=== PATIENT | male | born 1990 | race Caucasian/White ===

== ENCOUNTER 2023-07-07 11:17 | Outpatient (REF) | payer MEDICAID, OTHER, SELFPAY ==
[2023-07-07 13:39] LABS: MANUAL DIFF FLAG NO
[2023-07-07 13:53] LABS: Basophils Absolute Auto 0.1 X10*3/uL (0.0-0.2); Basophils Percent Auto 0.9 % (0-2); Eosinophils Absolute Auto 0.1 X10*3/uL (0.0-0.4); Eosinophils Percent Auto 2.1 % (0-4); Hematocrit 49.4 % (42.0-52.0); Hemoglobin 16.7 g/dl (14.0-18.0); Imm Gran Abs Auto 0.04 X10*3/uL (0.00-0.03); Imm Gran Pct Auto 0.7 % (0.0-0.4); Lymphocytes Absolute Auto 1.7 X10*3/uL (1.2-4.9); Lymphocytes Percent Auto 30.5 % (20-40); Mean Corpuscular HGB Conc 33.8 g/dl (31.0-36.0); Mean Corpuscular Hemoglobin 30.3 pg (27.0-33.0); Mean Corpuscular Volume 89.7 fL (80.0-98.0); Mean Platelet Volume 10.1 fL (9.4-12.4); Monocytes Absolute Auto 0.4 X10*3/uL (0.1-1.2); Neutrophils Absolute Auto 3.3 x10*3/uL (2.0-8.3); Neutrophils Percent Auto 58.8 % (45-73); Platelet Count 231 X10*3/uL (160-400); Red Blood Count 5.51 X10*6/uL (4.60-5.80); Red Cell Distribution Width 13.6 % (11.0-16.0); White Blood Count 5.7 X10*3/uL (4.8-10.8)
[2023-07-07 14:01] LABS: Estimated Average Glucose 100 mg/dL; Hemoglobin A1c % 5.1 % (<6.0)
[2023-07-07 14:10] LABS: Cholesterol 222 mg/dL (<200); HDL Cholesterol 47 mg/dL (>40); LDL Cholesterol Calculated 152 mg/dL (<100); Triglycerides 119 mg/dL (<150)
[2023-07-07 14:26] LABS: Reflex LDLD? No
[2023-07-07 14:32] LABS: Alanine Aminotransferase 21 U/L (0-40); Albumin Level 4.5 g/dL (3.5-5.0); Alkaline Phosphatase 77 U/L (39-117); Anion Gap 10 (12-20); Aspartate Amino Transferase 18 U/L (5-37); Bilirubin Total 0.5 mg/dL (0.0-1.0); Blood Urea Nitrogen 10 mg/dL (9-16); Calcium 9.8 mg/dL (8.4-10.2); Carbon Dioxide 25 mmol/L (22-29); Chloride 108 mmol/L (96-108); Estimated Glomerular Filt Rate > 60; Glucose Random 100 mg/dL (60-115); Lipase 26 U/L (8-78); Potassium 4.2 mmol/L (3.3-5.1); Sodium 139 mmol/L (135-145); Total Protein 7.6 g/dL (6.5-8.0)
== END 2023-07-07 11:18 | disposition home or self-care (01) ==
LOC: HO.HHCL 11:17
PROVIDERS: Visit Provider Family Medicine
DX: Z13.89 Encounter for screening for other disorder (principal)
CPT/HCPCS: 36415; 80053; 80061; 83036; 83690; 85025

== ENCOUNTER 2023-10-11 09:35 | Outpatient (REF) | payer MEDICAID, OTHER, SELFPAY ==
[2023-10-11 11:46] LABS: Hematocrit 46.8 % (42.0-52.0); Hemoglobin 15.6 g/dl (14.0-18.0); Mean Corpuscular HGB Conc 33.3 g/dl (31.0-36.0); Mean Corpuscular Hemoglobin 30.4 pg (27.0-33.0); Mean Corpuscular Volume 91.2 fL (80.0-98.0); Mean Platelet Volume 9.8 fL (9.4-12.4); Platelet Count 229 X10*3/uL (160-400); Red Blood Count 5.13 X10*6/uL (4.60-5.80); Red Cell Distribution Width 13.2 % (11.0-16.0); White Blood Count 4.9 X10*3/uL (4.8-10.8)
[2023-10-11 12:07] LABS: Estimated Average Glucose 105 mg/dL; Hemoglobin A1c % 5.3 % (<6.0); Syphilis Screen Nonreactive (Nonreactive)
[2023-10-11 12:16] LABS: Alanine Aminotransferase 18 U/L (0-40); Albumin Level 4.2 g/dL (3.5-5.0); Alkaline Phosphatase 73 U/L (39-117); Anion Gap 10 (12-20); Aspartate Amino Transferase 17 U/L (5-37); Bilirubin Total 0.5 mg/dL (0.0-1.0); Blood Urea Nitrogen 14 mg/dL (9-16); Calcium 9.3 mg/dL (8.4-10.2); Carbon Dioxide 26 mmol/L (22-29); Chloride 109 mmol/L (96-108); Cholesterol 202 mg/dL (<200); Estimated Glomerular Filt Rate > 60; Glucose Random 105 mg/dL (60-115); HDL Cholesterol 43 mg/dL (>40); LDL Cholesterol Calculated 136 mg/dL (<100); Potassium 4.2 mmol/L (3.3-5.1); Sodium 141 mmol/L (135-145); Total Protein 7.3 g/dL (6.5-8.0); Triglycerides 116 mg/dL (<150)
[2023-10-11 12:18] LABS: HBS Num1 0.74 mIU/mL (0-7.99); HIV AB/AG Nonreactive (Nonreactive); HIV Num 1 0.04 S/CO (0.00-0.99); Hepatitis B Core Antibody Nonreactive (Nonreactive); ~Hepatitis B Surface Antibody NONREACTIVE (Nonreactive); ~Hepatitis C Antibody Nonreactive (Nonreactive)
[2023-10-11 12:22] LABS: TSH reflex Free T4 0.64 uIU/mL (0.32-4.0)
[2023-10-11 12:38] LABS: HBsAGNum1 0.22 S/CO (0.00-0.99); Hepatitis B Surface Antigen Negative (Negative)
[2023-10-13 16:13] LABS: TS Negative Control Passed; TS Panel A 3; TS Panel B 39; TS Positive Control Passed; TSpotTB Positive (Negative)
== END 2023-10-11 09:36 | disposition home or self-care (01) ==
LOC: HO.HHCL 09:35
PROVIDERS: Visit Provider Student in an Organized Health Care Education/Training Program
DX: Z00.00 Encounter for general adult medical examination without abnormal findings (principal); Z11.4 Encounter for screening for human immunodeficiency virus [HIV]
CPT/HCPCS: 36415; 80053; 80061; 83036; 84443; 85027; 86481; 86704; 86706; 86780; 86803; 87340; 87389

== ENCOUNTER 2023-10-15 15:48 | Outpatient (REF) | payer MEDICAID, OTHER, SELFPAY ==
--- NOTE | ~2023-10-15 | XR_ITS ---
EXAMINATION: XR CHEST CLINICAL INFORMATION: Positive T-spine COMPARISON: None available. TECHNIQUE: 2 views of the chest were obtained. FINDINGS: No significant abnormality is noted involving the heart, lungs, mediastinum, bony thorax or soft tissues. XR/XR chest 2V IMPRESSION: Unremarkable examination.
== END 2023-10-15 15:49 | disposition home or self-care (01) ==
LOC: HO.HHCX 15:48
PROVIDERS: Visit Provider Family Medicine
DX: R76.11 Nonspecific reaction to tuberculin skin test without active tuberculosis (principal)
CPT/HCPCS: 71046

== ENCOUNTER 2023-11-16 13:58 | Outpatient (REF) | payer MEDICAID, OTHER, SELFPAY ==
[2023-11-19 14:08] LABS: TS Negative Control Passed; TS Panel A 10; TS Panel B 42; TS Positive Control Passed; TSpotTB Positive (Negative)
== END 2023-11-16 13:59 | disposition home or self-care (01) ==
LOC: HO.HHCL 13:58
PROVIDERS: Visit Provider Student in an Organized Health Care Education/Training Program
DX: Z11.1 Encounter for screening for respiratory tuberculosis (principal)
CPT/HCPCS: 36415; 86481

== ENCOUNTER 2024-09-22 14:31 | Outpatient (REF) | payer MEDICAID, OTHER, SELFPAY ==
[2024-09-22 16:05] LABS: Hematocrit 46.3 % (42.0-52.0); Hemoglobin 15.9 g/dl (14.0-18.0); Mean Corpuscular HGB Conc 34.3 g/dl (31.0-36.0); Mean Corpuscular Hemoglobin 30.3 pg (27.0-33.0); Mean Corpuscular Volume 88.4 fL (80.0-98.0); Platelet Count 237 X10*3/uL (160-400); Red Blood Count 5.24 X10*6/uL (4.60-5.80); Red Cell Distribution Width 13.2 % (11.0-16.0); White Blood Count 5.3 X10*3/uL (4.8-10.8)
[2024-09-22 16:14] LABS: Estimated Average Glucose 108 mg/dL; Hemoglobin A1C 144.8142 umol/L; Hemoglobin A1c % 5.4 % (<6.0); Total Hemoglobin (HGBA1C) 4124.5706 umol/L
[2024-09-22 16:24] LABS: Creatinine Urine 180.76 mg/dL; Microalbum/Creatinine Ratio Ur 4.4 ug/mg cr (<30)
[2024-09-22 17:47] LABS: Alanine Aminotransferase 28 U/L (0-40); Albumin Level 4.5 g/dL (3.5-5.0); Alkaline Phosphatase 82 U/L (39-117); Anion Gap 9 (12-20); Aspartate Amino Transferase 26 U/L (5-37); Bilirubin Total 0.8 mg/dL (0.0-1.0); Blood Urea Nitrogen 11 mg/dL (9-16); Calcium 9.6 mg/dL (8.4-10.2); Carbon Dioxide 29 mmol/L (22-29); Chloride 103 mmol/L (96-108); Cholesterol 206 mg/dL (<200); Estimated Glomerular Filt Rate > 60; Glucose Random 86 mg/dL (60-115); HDL Cholesterol 36 mg/dL (>40); LDL Cholesterol Calculated 132 mg/dL (<100); Potassium 4.1 mmol/L (3.3-5.1); Sodium 137 mmol/L (135-145); Total Protein 7.4 g/dL (6.5-8.0); Triglycerides 194 mg/dL (<150)
[2024-09-22 17:55] LABS: TSH reflex Free T4 0.67 uIU/mL (0.32-4.0); Vitamin D 25-OH Total 18.1 ng/mL (>30)
[2024-09-23 13:43] LABS: CT PCR NOT DETECTED (Not Detect.); NG PCR NOT DETECTED (Not Detect.)
[2024-09-24 08:54] LABS: Syphilis Screen Nonreactive (Nonreactive)
[2024-09-24 08:59] LABS: HBS Num1 > 1000.00 mIU/mL (0-7.99); HBc Num1 0.14 S/CO (0.00-0.79); HIV AB/AG Nonreactive (Nonreactive); HIV Num 1 0.05 S/CO (0.00-0.99); Hepatitis B Core Antibody Nonreactive (Nonreactive); Hepatitis B Surface Antigen Negative (Negative); ~Hepatitis B Surface Antibody REACTIVE (Nonreactive); ~Hepatitis C Antibody Nonreactive (Nonreactive)
== END 2024-09-22 14:32 | disposition home or self-care (01) ==
LOC: HO.HHCL 14:31
PROVIDERS: Visit Provider Student in an Organized Health Care Education/Training Program
DX: Z00.00 Encounter for general adult medical examination without abnormal findings (principal)
CPT/HCPCS: 36415; 80053; 80061; 82043; 82306; 82570; 83036; 84443; 85027; 86704; 86706; 86780; 86803; 87340; 87389; 87491; 87591

== ENCOUNTER 2025-10-02 10:14 | Outpatient (REF) | payer MEDICAID, OTHER, SELFPAY ==
[2025-10-02 12:20] LABS: Alanine Aminotransferase 19 U/L (0-40); Albumin Level 4.4 g/dL (3.5-5.0); Alkaline Phosphatase 71 U/L (39-117); Anion Gap 9 (12-20); Aspartate Amino Transferase 24 U/L (5-37); Blood Urea Nitrogen 15 mg/dL (9-16); Calcium 8.9 mg/dL (8.4-10.2); Carbon Dioxide 29 mmol/L (22-29); Chloride 106 mmol/L (96-108); Cholesterol 138 mg/dL (<200); Estimated Glomerular Filt Rate > 60; HDL Cholesterol 43 mg/dL (>40); Potassium 4.1 mmol/L (3.3-5.1); Sodium 140 mmol/L (135-145); Total Protein 6.7 g/dL (6.5-8.0); Triglycerides 34 mg/dL (<150)
--- OUTSIDE RECORDS SUMMARY | 2025-10-02 12:30 | XMS_ITS | Encounter Summary ---
Author Organization [employer] Address [address] 7 [place] [address] Care Team Providers Care Hose Turner Name Role Phone Iesha Munguia MD Primary Care Pro vider Reason for Visit * Reason Onset Date Comments New Patient 08/10/2023 Encounter Details Date Type Department Care Team ([facility] st Contact Info) Description 08/10/2023 Telephone [facility] MEDICINE [address] [place], [place] [phone] Bryn Reyes MD [address] [place], [place] [phone] New Patient Social History Tobacco Use Types Packs/Day Years Used Date Smoking Tobacco: Every Day Cigarettes Passive Smoke Exposure: Current Smokeless Tobacco: Never Alcohol Use Standard Drinks/Week Comments Not Currently 0 (1 standard drink = 0.6 oz pur e alcohol) Sex and Gender Information Value Date Recorded Sex Assigned at Male 07/07/2023 10:16 AM EDT Legal Sex Male 10:14 AM EDT Gender Identity Male 07/07/2023 10:16 AM EDT Sexual Orientation Straight 10/04/2023 1: 34 PM EST documented as of this encounter Miscellaneous Notes * Telephone Encounter - Tio Aguilar - 08/13/2023 12:38 PM EDT PAR Tio Quiros called pt to Offer SAND BLASTER appt. Pt demographics and insurance information were verified. Pt states following medical conditions: Uncontrolled Hypertension Pt reports taking medications: losartan (Cozaar) 50 MG tablet and omeprazole OTC (PriLOSEC OTC) 20 MG EC tablet . Pt given SAND BLASTER appt with Dr. Stewart on 10/04/2023 @ 1:15 pm. Pt will be sent appt reminder card and medical release form and agrees to complete and to return to medical records prior to SAND BLASTER appt. * Telephone Encounter - Tio Aguilar - 08/10/2023 3:31 PM EDT New Patients Par Tio Quiros called to schedule New patient appt, pt did not answer left voicemail to give a call at [phone]. documented in this encounter Plan of Treatment Upcoming Encounters Date Type Department Care Team (Late st Contact Info) Description 11/23/2025 3:30 PM EST Office Visit [facility] OPTOMETRY [address] [place] [address] Marialuisa Tyson, OD [address] [place] [address] 12/12/2025 10:45 AM EST Office Visit [facility] MEDICINE [address] [place] [address] Iesha Munguia MD [address] [place] [address] documented as of this encounter Visit Diagnoses Not on filedocumented in this encounter Care Teams Hose Turner Relationship Specialty Start Date End Date Iesha Munguia MD [address] [place] [address] PCP - General Internal Medicine 10/07/23 documented as of this encounter
--- OUTSIDE RECORDS SUMMARY | 2025-10-02 12:30 | XMS_ITS | Encounter Summary ---
Author Organization [employer] Address [address] [facility] 7t [place] [address] Care Team Providers Care Change Coordinator Name Role Phone Iesha Munguia MD Primary Care Pro vider Reason for Visit * Reason Onset Date Comments Med Refill 02/16/2025 Encounter Details Date Type Department Care Team (Late st Contact Info) Description 02/16/2025 Refill [facility] MEDICINE [address] [place], [place] [phone] Bryn Reyes MD [address] [place] [address] Social History Tobacco Use Types Packs/Day Years Used Date Smoking Tobacco: Unknown Passive Smoke Exposure: Current Smokeless Tobacco: Never Comments:Started smoking 15 of age until now, smokes 3 cig a day -smoking for 18 years -stopped 12/2023 Alcohol Use Standard Drinks/Week Comments Yes 0 (1 standard drink = 0.6 oz pur e alcohol) social Depression Answer Date Recorded Patient Health Questionnaire-9 Score 0 09/22/2024 Patient Health Questionnaire-9 Score 0 09/22/2024 Last PHQ-9: Questionnaire Data Not on file 1 11/22/2023 Housing Stability Answer Date Recorded What is your housing situation today? I have vidya raaujo 09/13/[address] you li ve. Do you have problems with any of the following? None of the above 09/13/2024 Food Insecurity Answer Date Recorded Within the past 12 months, y ou worried that your food would run out before you got money to buy more: Never True 09/13/2024 Within the past 12 months,th e food you bought just didn't last and you didn't have enough money to get more: Never True 04/2024 Transportation Answer Date Recorded In the past 12 months, has l ack of transportation kept you from medical appts, meetings, work or from getting things needed for daily living? No 09/21/2023 Utilities Answer Date Recorded In the past 12 months, has t he electric, gas, oil or water company threatened to shut off services in your home? No 09/21/2023 Depression Answer Date Recorded Patient Health Questionnaire-2 Score 0 09/22/2024 Internet Access Answer Date Recorded Internet Access Q1 Yes 09/13/2024 Internet Access Q2 Not on file 09/13/2024 Sex and Gender Information Value Date Recorded Sex Assigned at Male 07/07/2023 10:16 AM EDT Legal Sex Male 10:14 AM EDT Gender Identity Male 07/07/2023 10:16 AM EDT Sexual Orientation Straight 10/04/2023 1: 34 PM EST documented as of this encounter Plan of Treatment Upcoming Encounters Date Type Department Care Team (Late st Contact Info) Description 11/23/2025 3:30 PM EST Office Visit [facility] OPTOMETRY [address] [place] [address] Jah, Marialuisa, OD [address] [place] [address] 12/12/2025 10:45 AM EST Office Visit [facility] MEDICINE [address] [place] [address] Iesha Munguia MD [address] [place] [phone] documented as of this encounter Visit Diagnoses Not on filedocumented in this encounter Additional Health Concerns Assessment Noted Time PHQ-9 Depression Total Score: 0 09/22/20 24 1:44 PM EST documented as of this encounter Care Teams Change Coordinator Relationship Specialty Start Date End Date Iesha Munguia MD [address] [place] [address] PCP - General Internal Medicine 10/07/23 documented as of this encounter
--- OUTSIDE RECORDS SUMMARY | 2025-10-02 12:30 | XMS_ITS | Encounter Summary ---
Author Organization [employer] Address [address] [place] [address] 7 [place] [address] Care Team Providers Care Director Video Name Role Phone Iesha Munguia MD Primary Care Pro vider Reason for Visit * Reason Onset Date Comments Med Refill 11/10/2024 Encounter Details Date Type Department Care Team (Late st Contact Info) Description 11/10/2024 Refill [facility] MEDICINE [address] [place], [place] [phone] Iesha Munguia MD [address] [place] [address] Social History Tobacco Use Types Packs/Day Years [...] your housing situation today? I have vidya arauoj 09/13/[address] you li [...] Description 11/23/2025 3:30 PM EST Office Visit [facility] OPTOMETRY [address] [place] [address] Jah, Marialuisa, OD [address] [place] [address] 12/12/2025 10:45 AM EST Office Visit [facility] MEDICINE [address] [place] [address] Iesha Munguia MD [address] [place] [phone] documented as of this encounter Visit Diagnoses Not on filedocumented in this encounter Additional Health Concerns Assessment Noted Time PHQ-9 Depression Total Score: 0 09/22/20 24 1:44 PM EST documented as of this encounter Care Teams Director Video Relationship Specialty Start Date End Date Iesha Munguia MD [address] [place] [address] PCP - General Internal Medicine 10/07/23 documented as of this encounter
--- OUTSIDE RECORDS SUMMARY | 2025-10-02 12:30 | XMS_ITS | Encounter Summary ---
Author Organization [employer] Address [address] [place] [address] 7 [place] [address] Care Team Providers Care Finance Controller Name Role Phone Iesha Munguia MD Primary Care Pro vider Reason for Visit * Reason Onset Date Comments Med Refill 09/18/2025 Encounter Details Date Type Department Care Team (Late st Contact Info) Description 09/18/2025 Refill [facility] MEDICINE [address] [place], [place] [phone] Iesha Munguia MD [address] [place] [address] Social History Tobacco Use Types Packs/Day Years [...] your housing situation today? I have vidya araujo 09/13/[address] you li [...] Description 11/23/2025 3:30 PM EST Office Visit [facility] OPTOMETRY [address] [place] [address] Jah, Marialuisa, OD [address] [place] [address] 12/12/2025 10:45 AM EST Office Visit [facility] MEDICINE [address] [place] [address] Iesha Munguia MD [address] [place] [phone] documented as of this encounter Visit Diagnoses Not on filedocumented in this encounter Additional Health Concerns Assessment Noted Time PHQ-9 Depression Total Score: 0 09/22/20 24 1:44 PM EST documented as of this encounter Care Teams Finance Controller Relationship Specialty Start Date End Date Iesha Munguia MD [address] [place] [address] PCP - General Internal Medicine 10/07/23 documented as of this encounter
--- OUTSIDE RECORDS SUMMARY | 2025-10-02 12:30 | XMS_ITS | Encounter Summary ---
Author Organization [employer] Address [address] [facility] 7 [place] [address] Care Team Providers Care Electrical Installation Supervisor Name Role Phone Iesha Munguia MD Primary Care Pro vider Encounter Details Date Type Department Care Team (Late Contact Info) Description 07/21/2023 Orders Only [facility] MEDICINE [address] [place] [phone] Analy Pandey MD [address] [place] [phone] Social History Tobacco Use Types Packs/Day Years [...] Encounters Date Type Department Care Team (Late Contact Info) Description 11/23/2025 3:30 PM EST Office Visit [facility] OPTOMETRY [address] [place], [place] [phone] Marialuisa Tyson, OD [address] [place] [address] 12/12/2025 10:45 AM EST Office Visit [facility] MEDICINE [address] [place] [phone] Iesha Munguia MD [address] [place] [address] documented as of this encounter Visit Diagnoses Not on filedocumented in this encounter Care Teams Electrical Installation Supervisor Relationship Specialty Start Date End Date Iesha Munguia MD [address] [place] [address] PCP - General Internal Medicine 10/07/23 documented as of this encounter
--- OUTSIDE RECORDS SUMMARY | 2025-10-02 12:30 | XMS_ITS | Clinical Summary ---
Author Organization [email or web address] Address [address] [facility] 7[address] [place] [address] Care Team Providers Care Audio/Video Technician Name Role Phone Iesha Munguia MD Primary Care Pro vider Allergies No known active allergies Medications * This document contains information received from the source organization and may not represent a complete record from that organization. Blood Pressure Monitor kit Check blood pressure once daily and as needed 1 kit 023 Active losartan (Cozaar) 50 MG tablet TAKE 1 TABLET BY MOUTH EVERY MORNING 90 tablet 1 025 Active cholecalcifer ol (Vitamin D-3) 25 MCG tablet TAKE 1 TABLET BY MOUTH EVERY DAY 90 tablet 1 025 Active Tirzepatide-W eight Management (Zepbound) 7.5 MG/0.5ML solution auto-injector Indications:O besity (BMI 30-39.9) Inject 0.5 mL (7.5 mg) under the skin 1 (one) time per week. 2 mL 5 1:00 PM EST 025 Active cholecalcifer ol (Vitamin D-3) 25 MCG (1000 UT) tablet Take 1 tablet (25 mcg) by mouth Once per day. 90 tablet 1 025 2024 Discontinued losartan (Cozaar) 50 MG tablet Take 1 tablet (50 mg) by mouth in the morning. 90 tablet 1 025 2024 Discontinued Tirzepatide-W eight Management (Zepbound) 5 MG/0.5ML solution auto-injector Inject 0.5 mL (5 mg) as directed 1 (one) time per week. 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 No risk for self harm, SI, or HI. Reason for visit was to assess symptoms, provide intervention, and offer referrals. Symptoms are present in context of recent relocation from [facility] to [place]. Provided psychoeducation around Bipolar and anxiety and how to cope with symptoms. An OP therapy referral will be completed. Provider will continue to prescribe Topiramate 100 mg. At this time Cliffordshawn Villa Witt meets criteria for Visit Diagnoses: Problem List Items Addressed This Visit Other Anxiety - Primary Bipolar disorder, unspecified (CMS/HCC) Relevant Orders Referral to Behavioral Health Patient ready to address current needs Yes Strengths include requesting services to support MH. Clifford is in the active stage. PLAN: 1. Follow up with [facility]: Not recommended for follow-up 2. Patient goal is obtain therapist 3. Behavioral Recommendations a. Provider will continue to prescribe current regimen b. Utilize coping skills provided c. Engage in therapy once established d. Reach out to [facility] for additional support, if needed Tobacco use 10/04/2023 Obesity (BMI 30-39.9) 10/04/2023 Health care maintenance 10/04/2023 Hypertension 07/07/2023 Assessment & Plan (07/07/2023 11:01 AM EDT): -Goal BP < 140/90 per JNC-8 and < 130/80 per ACC/AHA guideline (Treatment threshold >= 140/90 ) - BP not at goal, pt has not been taking his medication - Continue working on lifestyle modifications - Recommended self-monitoring BP. - Since his previous medication may not be covered by his insurance, will start losartan 50 mg daily -Treatment Hx: -Follow up in 1 mo, sooner if any problem arises Resolved Problems Problem Noted Date Diagnosed Date Resolved Date Epigastric pain 07/07/2023 10/04/2023 Assessment & Plan (07/07/2023 11:03 AM EDT): - evaluate with lab - trial of omeprazole after he submits test - work on smoking cessation and improving diet - will consider imaging study depending on his test and response to PPI - follow up with a new PCP Encounters Date Type Department Care Team Description 09/27/2025 Telephone [facility] MEDICINE [address] [place] [address] [phone] Iesha Munguia MD chart prep 09/20/2025 Patient Outreach [facility]INE [address] [place] [address] [phone] Iesha Munguia MD Pre-visit Planning (Pre-visit planning - LVM ) 09/19/2025 Refill [facility] MEDICINE [address] [place] [address] [phone] Iesha Munguia MD Obesity (BMI 30-39.9) 09/18/2025 Refill [facility] MEDICINE [address] [place] [phone] Iesha Munguia MD 09/16/2025 Refill [facility] MEDICINE [address] [place] [address] [phone] Iesha Munguia MD 08/22/2025 Refill [facility] MED[facility]INE [address] [place] [phone] Iesha Munguia MD 08/15/2025 Telephone [facility] MEDICINE [address] [place] [address] [phone] Iesha Munguia MD Appointment 08/02/2025 Telephone [facility] MEDICINE [address] [place] [address] [phone] Iesha Munguia MD Zepbound 07/27/2025 Travel 07/24/2025 8:00 AM EDT Office Visit [facility] D[facility]AL [address] [place] [address] [phone] Makonahally, Deviprasad, BDS Abscess, alveolar (Primary Dx) 07/24/2025 Telephone [facility]INE [address] [place] [address] Iesha Munguia MD Durable Medical Equipment 07/23/2025 Travel 07/20/2025 Telephone [facility] [address] [place] [address] Iesha Munguia MD Prior Authorization 07/20/[address] [phone] Iesha Munguia MD 07/19/2025 2:30 PM EDT Clinical Support [facility]INE [address] [place] [address] [phone] Jeanne Cortes RN Obesity (BMI 30-39.9) 07/19/2025 Travel 07/11/2025 1:00 PM EDT Office Visit [facility] ADULT DENTAL [address] [place] [phone] Pamela Tee, DDAnderson Rampant dental caries (Primary Dx); Dental abscess; Pain, dental 07/11/2025 Travel 07/06/2025 Orders Only [facility] [address] [place] [address] Iesha Munguia MD from Last 3 Months Immunizations Immunization Administration Dates Next Due Hep B, adult 06/19/2024,12/20/2023,11/15/2023 Influenza injectable quadriv alent preservative free 10/04/2023 Influenza, seasonal, injecta ble, preservative free 09/22/2024 Pfizer Covid-19 Vaccine 12+ 09/22/2024, Tdap 10/04/2023 Family History Medical History Relation Name Comments DM2 Father Hypertension Father DM2 Maternal Grandfather DM2 Paternal Grandfather DM2 Paternal Grandmother Relation Name Status Comments Father Maternal Grandfather Paternal Grandfather Paternal Grandmother Social History Tobacco Use Types Packs/Day Years Used Date Smoking Tobacco: Unknown Passive Smoke Exposure: Current Smokeless Tobacco: Never Tobacco Cessation:Counseling Given: Not Answered Comments:Started smoking 15 of age until now, [...] Orientation Straight 10/04/2023 1: 34 PM EST Last Filed Vital Signs Vital Sign Reading Time Taken Comments Blood Pressure 136/90 07/24/2025 8:15 AM EDT Pulse 82 02/23/2025 11:19 AM EDT Temperature 36.6 C (97.9 F) 02/23/2025 11:19 AM EDT Respiratory Rate 20 02/23/2025 11:19 AM EDT Oxygen Saturation 98% 02/23/2025 11:19 AM EDT Inhaled Oxygen Concentration - - Weight 92.5 kg (204 lb) 07/19/2025 2:09 PM EDT Height 172.7 cm (5' 8 ) 07/19/2025 2:09 PM EDT Body Mass Index 31.02 07/19/2025 2:09 PM EDT Plan of Treatment Upcoming Encounters Date Type Department Care Team (Late st Contact Info) Description 11/23/2025 3:30 PM EST Office Visit [facility] OPTOMETRY [address] [place], [place] [phone] JahMarialuisa stahl, OD [address] [place] [address] 12/12/2025 10:45 AM EST Office Visit [facility] MEDICINE [address] [place] [address] Iesha Munguia MD [address] [place], [place] [phone] Health Maintenance Due Date Last Done Comments Dental Oral Exam 1990 Dental Prophylaxis 1990 Dental X-Ray: Full Mouth 1990 Alcohol/Substance Use Screening 2002 Family Planning (PISQ) 2005 HPV Vaccines (1 - Male 3-dose series) 2005 COVID-19 Vaccine (3 - season) 2025 09/22/2024, 10/11/2023 Influenza Vaccine (#1) 2025 09/22/2024, 2022 Depression Screening 09/22/2025 09/22/2024, 09/22/20 24 SDOH Screening 02/16/2026 02/16/2025 Disability Screening 02/22/2026 02/22/2025 Dental X-Ray: Bitewings 07/12/2026 07/11/2025 Tobacco Screening 07/24/2026 07/24/2025 Lipid Panel 09/22/2029 10/02/2025, 09/08, 10/11/2023, Additional history exists DTaP/Tdap/Td Vaccines (2 - Td or Tdap) 10/04/2033 10/04/2023 Zoster Vaccines (1 of 2) 2040 RSV Patients and Patients Aged 60 years or older (1 - 1-dose 75+ series) 2065 Hepatitis B Vaccines Completed 06/19/2024, 12/20/2023, 11/15/2023 HIV Screening Completed 09/22/2024, 10/11/2023 Hepatitis C Screening Completed 09/22/2024, 023 HIB Vaccines Aged Out No longer eligi ble based on patient's age to complete this topic Hepatitis A Vaccines Aged Out No long er eligible based on patient's age to complete this topic IPV Vaccines Aged Out No longer eligi ble based on patient's age to complete this topic Meningococcal B Vaccine Aged Out No l onger eligible based on patient's age to complete this topic Meningococcal Vaccine Aged Out No anahy tammi eligible based on patient's age to complete this topic Pneumococcal Vaccine: Pediatrics (0 to 5 Years) and At-Risk Patients (6 to 49) Years Aged Out No longer eligible based on patient's age to complete this topic RSV under 20 months Aged Out No longe r eligible based on patient's age to complete this topic Rotavirus Vaccines Aged Out No longer eligible based on patient's age to complete this topic Procedures Procedure Name Priority Date/Time Associated Diagnosis Comments LIPID PANEL, STANDARD Routine 10/02/2025 10:19 AM EST Hyperlipidemia, unspecified hyperlipidemia type COMPREHENSIVE METABOLIC PANEL Routine 10/02/2025 10:19 AM EST Hyperlipidemia, unspecified hyperlipidemia type 31 EXTRACTION, ERUPTED TOOTH REQ REMOVAL OF BONE AND/OR SECTIONING OF TOOTH Routine 07/24/2025 8:00 AM EDT CASE PRESENTATION, DETAILED AND EXTENSIVE TREATMENT PLANNING Routine 07/24/2025 8:00 AM EDT CASE PRESENTATION, DETAILED AND EXTENSIVE TREATMENT PLANNING Routine 07/11/2025 1:00 PM EDT Rampant dental caries Dental abscess Pain, dental BITEWING - SINGLE RADIOGRAPHIC IMAGE Routine 07/11/2025 1:00 PM EDT Rampant dental caries Dental abscess Pain, dental INTRAORAL - PERIAPICAL FIRST RADIOGRAPHIC IMAGE Routine 07/11/2025 1:00 PM EDT Rampant dental caries Dental abscess Pain, dental PALLIATIVE (EMERGENCY) TREATMENT OF DENTAL PAIN - MINOR PROCEDURE Routine 07/11/2025 1:00 PM EDT Rampant dental caries Dental abscess Pain, dental HEPATITIS C AB W/REFL TO HCV RNA, QN, PCR Routine 09/22/2024 2:33 PM EST Annual physical exam HIV 1/2 ANTIGEN/ANTIBODY, FOURTH GENERATION W/RFL Routine 09/22/2024 2:33 PM EST Annual physical exam from Last 3 Months or Most Recently Relevant to Health Maintenance Results * Lipid Panel, Standard (10/02/2025 10:19 AM EST) Triglycerides 34 <150 mg/dL [facility] Comment:Desirable Triglyceri de: less than 150 mg/dLBorderline High Triglyceride 150-199 mg/dLHigh Triglyceride: 200-499 mg/dLVery High Triglyceride: greater than or equal to 5OO mg/dL Cholesterol 138 <200 mg/dL [facility] Comment:Desirable Cholestero l: less than 200 mg/dLBorderline High Cholesterol: 200-239 mg/dLHigh Cholesterol: greater than 239 mg/dL LDL Cholesterol Calculated 89 <100 mg/dL [facility] Comment:Desirable LDL: less than 100 mg/dLNear Optimal/Above Optimal LDL: 110- 129 mg/dLBorderline High LDL: 130-159 mg/dLHigh LDL: 160-189 mg/dLVery High LDL: greater than or equal to 190 mg/dL HDL Cholesterol 43 >40 mg/dL [facility] Comment:Desirable HDL: great er than 40 mg/dL Note: This HDL assay may give artificially low results in patients with liver disease. Blood Venous blood specimen / Unknown 10/02/2025 10:19 AM EST 10/02/2025 11:38 AM EST us Iesha Cedeno MD LAB BLOOD ORDERAB LES Final Result [facility] [address] [place] [phone] * (ABNORMAL) Comprehensive Metabolic Panel (10/02/2025 10:19 AM EST) Sodium 140 135 - 145 mmol/L [facility] Potassium 4.1 3.3 - 5.1 mmol/L [facility] Chloride 106 96 - 108 mmol/L [facility] Carbon Dioxide 29 22 - 29 mmol/L [facility] Anion Gap 9(L) 12 - 20 [facility] Urea Nitrogen (BUN) 15 9 - 16 mg/dL [facility] Creatinine, Serum 0.65 0.5 - 1.4 mg/dL [facility] Estimated Glomerular Filt Rate >60 [facility] Comment:Chronic Kidney Disea se: Estimated GFR < 60 mL/min/1.15p4Mieojc Kidney Disease: Estimated GFR < 15 mL/min/1.73m2 Glucose 89 60 - 115 mg/dL [facility] Calcium 8.9 8.4 - 10.2 mg/dL [facility] Bilirubin, Total 0.7 0.0 - 1.0 mg/dL [facility] Aspartate Amino Transferase 24 5 - 37 U/L [facility] Alanine Aminotransferase 19 0 - 40 U/L [facility] Total Protein 6.7 6.5 - 8.0 g/dL [facility] Albumin Level 4.4 3.5 - 5.0 g/dL [facility] Alkaline Phosphatase 71 39 - 117 U/L [facility] Blood Venous blood specimen / Unknown 10/02/2025 10:19 AM EST 10/02/2025 11:38 AM EST us Iesha Cedeno MD LAB BLOOD ORDERAB LES Final Result [facility] [address] [place] [address] [phone] * Hepatitis C Antibody with Reflex to HCV, RNA, Quantitative, Real-Time PCR (09/22/2024 2:33 PM EST) Hepatitis C Antibody Nonreactive Nonreactive [facility] Comment:Antibodies to HCV no t detected; does not exclude early acuteHCV infection. Blood Venous blood specimen / Unknown 09/22/2024 2:33 PM EST 09/22/2024 3:56 PM EST us Iesha Cedeno MD LAB BLOOD ORDERAB LES Final Result Performing Organization Address [facility] Co de Phone Number [facility] [address] [place] [address] [phone] * HIV-1/2 Antigen and Antibodies, Fourth Generation, with Reflexes (09/22/2024 2:33 PM EST) [facility] HIV AB/AG Nonreactive Nonreactive [facility] Comment:HIV-1 p24 Ag and/or HIV-1/HIV-2 Ab not detected.A test result that is nonreactive does not exclude thepossibility of exposure to or infection with HIV-1 and/orHIV-2. Nonreactive results in this assay for individualswith prior exposure to HIV-1 and/or HIV-2 may be due toantigen and antibody levels that are below the limit ofdetection of this assay.The [employer] HIV Ag/Ab Combo assay result andsupplemental assay results should be interpreted inconjunction with the patient's clinical presentation,history and other laboratory results. If the results areinconsistent with clinical evidence, additional testing issuggested to confirm the result. Blood Venous blood specimen / Unknown 09/22/2024 2:33 PM EST 09/22/2024 3:56 PM EST us Iesha Cedeno MD LAB BLOOD ORDERAB LES Final Result Performing Organization Address [facility]/ZIP Co de Phone Number [facility] [address] [place] [address] [phone] from Last 3 Months or Most Recently Relevant to Health Maintenance Insurance [facility] [place] ADULT DENTAL - HSN FULL (MEDICAID) Care Teams Audio/Video Technician Relationship Specialty Start Date End Date Iesha Munguia MD [address] [place] [phone] PCP - General Internal Medicine 10/07/23
--- OUTSIDE RECORDS SUMMARY | 2025-10-02 12:30 | XMS_ITS | Encounter Summary ---
Author Organization [employer] Address [address] [place] [address] 7 [place] [address] Care Team Providers Care Gas Station Supervisor Name Role Phone Iesha Munguia MD Primary Care Pro vider Reason for Visit * Reason Onset Date Comments chart prep 09/27/2025 Encounter Details Date Type Department Care Team ([facility] st Contact Info) Description 09/27/[address] [facility] MEDICINE [address] [place], [place] [phone] Iesha Munguia MD [address] [place] [address] chart prep Social History Tobacco Use Types Packs/Day Years [...] encounter Miscellaneous Notes * Telephone Encounter - Carlene Fernandez MA - 09/27/2025 2:40 PM EST Chart Prep Labs: not done Images: done Screenings: Not Applicable Vaccines due: Covid Due, Flu Due, and HPV Referrals: Not Applicable Overdue care gaps: PHQ9, GAD7, and Disability documented in this encounter Plan of Treatment Upcoming Encounters Date Type Department Care Team (Late st Contact Info) Description 11/23/2025 3:30 PM EST Office Visit [facility] OPTOMETRY [address] [place] [address] Marialuisa Tyson, OD [address] [place] [address] 12/12/2025 10:45 AM EST Office Visit [facility] MEDICINE [address] [place] [address] Iesha Munguia MD [address] [place] [address] documented as of this encounter Visit Diagnoses Not on filedocumented in this encounter Additional Health Concerns Assessment Noted Time PHQ-9 Depression Total Score: 0 09/22/20 24 1:44 PM EST documented as of this encounter Care Teams Gas Station Supervisor Relationship Specialty Start Date End Date Iesha Munguia MD [address] [place] [phone] PCP - General Internal Medicine 10/07/23 documented as of this encounter
--- OUTSIDE RECORDS SUMMARY | 2025-10-02 12:30 | XMS_ITS | Encounter Summary ---
Author Organization [employer] Address [address] [place] [address] 7 [place] [address] Care Team Providers Care Orange Picker Name Role Phone Iesha Munguia MD Primary Care Pro vider Reason for Visit * Reason Comments Med Refill Encounter Details Date Type Department Care Team ([facility] st Contact Info) Description 01/08/2025 Refill [facility]INE [address] [place], [place] [phone] Iesha Munguia MD [address] [place] [address] Social History Tobacco Use Types Packs/Day Years [...] Description 11/23/2025 3:30 PM EST Office Visit [facility] OPTOMETRY [address] [place] [address] Jah, Marialuisa, OD [address] [place] [address] 12/12/2025 10:45 AM EST Office Visit [facility] MEDICINE [address] [place] [address] Iesha Munguia MD [address] [place] [phone] documented as of this encounter Visit Diagnoses Not on filedocumented in this encounter Additional Health Concerns Assessment Noted Time PHQ-9 Depression Total Score: 0 09/22/20 24 1:44 PM EST documented as of this encounter Care Teams Orange Picker Relationship Specialty Start Date End Date Iesha Munguia MD [address] [place] [address] PCP - General Internal Medicine 10/07/23 documented as of this encounter
--- OUTSIDE RECORDS SUMMARY | 2025-10-02 12:30 | XMS_ITS | Encounter Summary ---
Author Organization [employer] Address [address] [place] [address] Care Team Providers Care Manager Mental Health Name Role Phone Iesha Munguia MD Primary Care Pro vider Reason for Visit * Reason Comments Med Refill Encounter Details Date Type Department Care Team ([facility] st Contact Info) Description 02/13/2025 Refill [facility] MED[facility]INE [address] [place], [place] [phone] Bryn Reyes MD [address] [place] [address] Social History Tobacco Use Types Packs/Day Years [...] 3:30 PM EST Office Visit [facility] OPTOMETRY [address] [place] [address] Jah, Marialuisa, OD [address] [place] [phone] 12/12/2025 10:45 AM EST Office Visit [facility] MEDICINE [address] [place] [address] Iesha Munguia MD [address] [place] [phone] documented as of this encounter Visit Diagnoses Not on filedocumented in this encounter Additional Health Concerns Assessment Noted Time PHQ-9 Depression Total Score: 0 09/22/20 24 1:44 PM EST documented as of this encounter Care Teams Manager Mental Health Relationship Specialty Start Date End Date Iesha Munguia MD [address] [place] [address] PCP - General Internal Medicine 10/07/23 documented as of this encounter
--- OUTSIDE RECORDS SUMMARY | 2025-10-02 12:31 | XMS_ITS | Encounter Summary ---
Author Organization [employer] Address [address] [place] [address] 7 [place] [address] Care Team Providers Care Compensation Expert Name Role Phone Iesha Munguia MD Primary Care Pro vider Reason for Visit * Reason Onset Date Comments Med Refill 06/25/2025 Encounter Details Date Type Department Care Team (Late st Contact Info) Description 06/25/2025 Refill [facility] MED[facility]INE [address] [place], [place] [phone] Iesha Munguia MD [address] [place] [address] Social History Tobacco Use Types Packs/Day Years [...] encounter Miscellaneous Notes * Telephone Encounter - Iesha Cedeno MD - 07/10/2025 8:58 PM EDT Lower dose sent already -thanks * Telephone Encounter - Jeanne Cortes RN - 06/27/2025 2:01 PM EDT Spoke to pt who reports new insurance ([employer]) starting Jul 09, 2025 and is hoping that Zepboundcan be covered then. Told him no guarantees as cannot see details of next insurance type and also advised it will have to go through insurance review which can take several weeks. Advised pt that PCPwill start him at lower initial dose again due to gap in using medication, afterwhich dose may be gradually increased. Pt verbalized understanding, no further questions. Will task to ask PCP to send Rx on 07/09/25. documented in this encounter Plan of Treatment Upcoming Encounters Date Type Department Care Team (Late st Contact Info) Description 11/23/2025 3:30 PM EST Office Visit [facility] OPTOMETRY [address] [place], [place] [phone] Marialuisa Tyson, OD [address] [place] [address] 12/12/2025 10:45 AM EST Office Visit [facility] MEDICINE [address] [place] [address] Iesha Munguia MD [address] [place], [place] [phone] documented as of this encounter Visit Diagnoses Not on filedocumented in this encounter Additional Health Concerns Assessment Noted Time PHQ-9 Depression Total Score: 0 09/22/20 24 1:44 PM EST documented as of this encounter Care Teams Compensation Expert Relationship Specialty Start Date End Date Iesha Munguia MD [address] [place], [place] [phone] PCP - General Internal Medicine 10/07/23 documented as of this encounter
== END 2025-10-02 10:15 | disposition home or self-care (01) ==
LOC: HO.HHCL 10:14
PROVIDERS: PCP Student in an Organized Health Care Education/Training Program; Visit Provider Student in an Organized Health Care Education/Training Program
DX: E78.5 Hyperlipidemia, unspecified (principal)
CPT/HCPCS: 36415; 80053; 80061